=== PATIENT | male | born 1940 | race Caucasian/White ===

== ENCOUNTER 2018-03-23 19:58 | Inpatient (IN) | payer MEDICARE ==
[~2018-03-23] VITALS: Ht 175.3 cm; Wt 71.8 kg
[2018-03-23 19:30] VITALS: BP 158/77
--- NOTE | 2018-03-23 19:30 | NUR ---
TELE AUTOMOBILE OR TRUCK RENTAL DISPATCHER INITAIL NOTES DIRECT ADMIT FROM [facility]. DX OF OPIATES OVERDOSE. PT IS AWAKE AND ALERT X3 , ABLE TO GIVE INFORMATION. STILL VERBALIZING HE WANTS TO KILL HIMSELF THAT'S WHY HE TOOK 10 PERCOCET TABLE AT HOME. HE LIVES BY HIM SELF WITHOUT ANY FAMILY SKIN WARM AND DRY TO TOUCH, NO ACUTE DISTRESS NOTED. AWARE WHERE HE AT . ENCOURAGE HIM TO VERBALIZE HIS FEELINGS AND USED THE CALL LIGHT OR TELL TO THE SITTER BESIDE HIM IF HE NEEDS SOME HELP. TELE SINUS ROSSY 48 PER MONITOR. 3 HEPLOCK PATENT AND INTACT. WILL CONTINUE CLOSELY MONITORING FOR SAFETY.
[2018-03-23] MEDS ORDERED: ENOXAPARIN SODIUM 40 MG/0.4 ML DISP.SYRIN SQ SCH (21:00)
[2018-03-23] MEDS ORDERED: MAG HYDROX/AL HYDROX/SIMETH 30 ML UDC PO PRN (21:00)
[2018-03-23] MEDS ORDERED: NALOXONE HCL 0.4 MG/ML AMPUL IV PRN (21:00)
[2018-03-23] MEDS ORDERED: MAGNESIUM HYDROXIDE 30 ML UDC PO PRN (21:00)
[2018-03-23] MEDS ORDERED: Z GUARD REMEDY 2 OZ OINT TP PRN (21:00)
[2018-03-23] MEDS ORDERED: ONDANSETRON HCL/PF 4 MG/2 ML VIAL IVP PRN (21:00)
[2018-03-23] MEDS: IV NS 0.9% 1,000 ML IV PRN (22:05)
[2018-03-23] MEDS ORDERED: GABA300C PO (23:51)
[2018-03-23] MEDS ORDERED: PANT40TA4 PO (23:51)
[2018-03-23] MEDS ORDERED: ESCI10TA PO (23:51)
[2018-03-23] MEDS ORDERED: TRAZ-182 PO (23:51)
[2018-03-23] MEDS ORDERED: SIMV40TA2 PO (23:51)
[2018-03-24] MEDS: IBUPROFEN 600 MG TABLET PO PRN (00:06)
--- NOTE | 2018-03-24 00:06 | NUR ---
TELE C SOFTWARE ENGINEER NOTES PT STILL AWAKE COMPLAINING OF LOWER LEG PAIN, IBUPROFEN TABLET GIVEN ORDERED. IVF NS AT 100ML/HR STILL INFUSING ON HIS LEFT FOREARM NO REDNESS NOTED. TELE SINUS ROSSY 50 PER MONITOR. SITTER AT THE BEDSIDE FOR SAFETY.
[2018-03-24 05:00] VITALS: BP 145/61
--- NOTE | 2018-03-24 05:10 | NUR ---
TELE HEAD CHEF NOTES EKG RESULT CAME OUT "MARKED SINUS BRADYCARDIA WITH MARKED SINUS ARRHYTHMIA WITH 1ST DEGREE AV BLOCK ,INCOMPLETE LEFT BUNDLE BRANCH BLOCK. VITAL SIGNS FF. BP 145/61, PULSE 48,RESP 19 , TEMP 97.8 AND O2 SAT 98%. MD AWARE NO ORDERS AT THIS TIME. FOR CARDIOLOGY CONSULT TODAY. PT IS AWAKE AND ALERT ,DENIES ANY PAIN OR ANY DISCOMFORT. IVF STILL INFUSING. . SITTER AT THE BEDSIDE FOR SAFETY. WILL CONTINUE MONITORING.
[2018-03-24 06:31] LABS: BASOPHILS % (AUTO) 0.5 % (0.0-2.0); EOSINOPHILS % (AUTO) 3.3 % (0.0-6.0); HEMATOCRIT 25 % (39-51); HEMOGLOBIN 7.8 g/dL (13.5-17.5); LYMPHOCYTES # (AUTO) 1.1 /CMM (0.8-4.8); LYMPHOCYTES % (AUTO) 17.7 % (20.0-44.0); MEAN CORPUSCULAR HGB CONC 31 g/dl (31.0-36.0); MEAN CORPUSCULAR VOLUME 82 fL (80-96); MONOCYTES # (AUTO) 0.9 /CMM (0.1-1.30); MONOCYTES % (AUTO) 13.2 % (2.0-12.0); NEUTROPHILS # (AUTO) 4.2 /CMM (1.8-8.9); NEUTROPHILS % (AUTO) 65.3 % (43.0-81.0); PLATELET COUNT (AUTO) 149 /CMM (150-450); RED BLOOD CELL COUNT(AUTO) 3.08 MIL/uL (4.5-6.0); WHITE BLOOD COUNT (AUTO) 6.5 K/uL (4.3-11.0)
[2018-03-24 06:50] LABS: ALANINE AMINOTRANSFERASE 12 U/L (12-78); ALBUMIN 2.6 g/dL (3.4-5.0); ALKALINE PHOSPHATASE 77 U/L (46-116); ASPARTATE AMINOTRANSFERASE 22 U/L (15-37); BILIRUBIN,DIRECT 0.1 mg/dL (0.0-0.2); BILIRUBIN,TOTAL 0.3 mg/dL (0.2-1.0); CALCIUM, SERUM 7.9 mg/dL (8.5-10.1); CARBON DIOXIDE 23 mmol/L (21-32); CHLORIDE 110 mmol/L (98-107); CREATININE 0.9 mg/dL (0.6-1.3); GLUCOSE 86 mg/dL (74-106); MAGNESIUM 1.7 mg/dL (1.8-2.4); PHOSPHORUS 2.7 mg/dL (2.5-4.9); POTASSIUM 3.4 mmol/L (3.5-5.1); SODIUM SERUM 144 mmol/L (136-145); TOTAL PROTEIN, SERUM 5.8 g/dL (6.4-8.2); UREA NITROGEN, BLOOD 10 mg/dL (7-18)
[2018-03-24 06:51] LABS: CHOLESTEROL 88 mg/dL (<200); HDL CHOLESTEROL 36 mg/dL (40-60); LDL 37 mg/dL (0-99); THYROID STIMULATING HORMONE 5.621 uIU/mL (0.358-3.74); TRIGLYCERIDES 106 mg/dL (30-150)
--- NOTE | 2018-03-24 06:57 | NUR ---
TELE GALLERY OR MUSEUM GUIDE CLOSING NOTES PT BACK TO SLEEP, RESPIRATION EVEN AND UNLABORED, NOT IN ANY ACUTE DISTRESS NOTED. IVF NS AT 100 ML/HR STILL INFUSING ON HIS LEFT FOREARM. NO REDNESS NOTED. TELE SINUS ROSSY HEART RATE 48 . KEPT HIM WARM AND COMFORTABLE AT ALL TIMES. SITTER AT THE BEDSIDE FOR SAFETY. ON SEMI FOWLERS POSITION WITH SIDE RAILS X2 UP. WILL ENDORSE TO AM NURSE FOR CONTINUITY OF CARE.
[2018-03-24 06:58] LABS: ACETAMINOPHEN 0 ug/ml (10-30)
[2018-03-24 08:00] VITALS: BP 129/66
[2018-03-24] MEDS: PANTOPRAZOLE 40 MG VIAL IV SCH (08:55)
[2018-03-24] MEDS ORDERED: POTASSIUM CHLORIDE 20 MEQ TAB.PRT.SR PO SCH (11:30)
[2018-03-24] MEDS: Magnesium 1GM/D5W 100ML PREMIX 100 ML IV SCH ×2 (11:50→14:17)
[2018-03-24] MEDS: IV NS 0.9% 1,000 ML IV PRN (11:53)
[2018-03-24 12:00] VITALS: BP 140/58
--- NOTE | 2018-03-24 12:44 | NUR ---
RN NOTES PT.'S HR DECREASED TO 35 BPM WHILE SLEEPING ON TELE MONITOR AND INCREASED TO [address] STERLING WAS INFORMED ABOUT PT.'S HEART RATE. PER DR. STERLING OKAY TO CONTINUE PT. ON TELE MONITOR.
[2018-03-24 16:00] VITALS: BP 138/68
--- NOTE | 2018-03-24 18:10 | NUR ---
Met with patient at bedside. He is alert and pleasant.States his overdose was intentional due to his depression. Has not seen his psychiatrist for a long time now. Patient denies being suicidal and homicidal at this time. He was advised to follow with his pcp Dr. Ramires and his psychiatrist after discharge. Patient lives alone in a single level dwelling. He ambulates with a walker and semi-independent with adl's. He owns a walker, shower chair and grab bars, no homehealth reported. States his primary source of support is his friend Aldo and his next door neighbor. Aldo takes him to groceries, appointments and errands, Aldo can provide ride when discharge. Will refer patient to bilingual social worker for meals on wheels application , [facility] info provided to patient to explore. Awaiting for psyche eval and clearance for possible discharge home in am. Addendum: 03/24/18 at 1811 by SEBASTIAN LEO RN Amended: Links added.
--- NOTE | 2018-03-24 18:11 | NUR ---
Met with patient at bedside. He is alert and pleasant.States his overdose was intentional due to his depression. Has not seen his psychiatrist for a long time now. Patient denies being suicidal and homicidal at this time. He was adived to follow with his pcp Dr. Ramires and his psychiatrist after discharge. Patient lives alone in a single level dwelling. He ambulates with a walker and semi-independent with adl's. He owns a walker, shower chair and grab bars, no homehealth reported. States his primary source of support is his friend Aldo and his next door neighbor. Aldo takes him to groceries, appointments and errands, Aldo can provide ride when discharge. Will refer patient to clinical social worker for meals on wheels application , [facility] info provided to patient to explore. Awaiting for psyche eval and clearance for possible discharge home in am. Addendum: 03/24/18 at 1811 by SEBASTIAN LEO RN Amended: Links added.
--- NOTE | 2018-03-24 19:20 | NUR ---
TELE/RN OPENING NOTES PT RECEIVED AWAKE, RESTING COMFORTABLY IN BED. A/OX3. SITTER AT BEDSIDE. ON ROOM AIR, BREATHING EVEN AND UNLABORED. ON TELE MONITOR SHOWING SINUS BRADYCARDIA WITH 1ST DEGREE AV BLOCK. HR 54. DENIES SOB AND PAIN AT THIS TIME. IV TO LFA AND RAC PATENT AND INTACT RUNNING IVF ORDERED. BED IN LOW/LOCKED POSITION WITH CALL LIGHT IN REACH. BILATERAL UPPER SIDE RAILS IN PLACE. HOB ELEVATED. WILL CONTINUE TO MONITOR
[2018-03-24 20:00] VITALS: BP 128/85
--- NOTE | 2018-03-24 20:10 | NUR ---
ROLL FILLER/ CLOSING NOTES PT. IS IN BED A&OX3. BREATHING UNLABORED ON ROOM AIR. NO S/S OF ACUTE DISTRESS. PT. STATED HE IS FEELING GOOD. IV FLUIDS RUNNING AT 100 ML/HR. 1:1 SITTER IS AT BEDSIDE. EXPLAINED TO PT. WHEN HE IS HAVING ANY SYMPTOMS OF DIARRHEA TO USE THE HAT PLACED IN THE TOILET TO HAVE STOOL COLLECTED, AND ENDORSED TO SITTER. BED IS IN LOWEST, AND LOCKED POSITION. 2 SIDE RAILS UP, AND INSTRUCTED PT. TO USE CALL LIGHT FOR ASSISTANCE. ALL NEEDS MET. WILL ENDORSE REPORT TO NURSE.
[2018-03-25] MEDS: IV NS 0.9% 1,000 ML IV PRN ×2 (00:16→11:23)
[2018-03-25 04:00] VITALS: BP 143/69
[2018-03-25 06:49] LABS: CALCIUM, SERUM 7.6 mg/dL (8.5-10.1); CARBON DIOXIDE 24 mmol/L (21-32); CHLORIDE 110 mmol/L (98-107); GLUCOSE 85 mg/dL (74-106); MAGNESIUM 1.9 mg/dL (1.8-2.4); POTASSIUM 3.3 mmol/L (3.5-5.1); SODIUM SERUM 144 mmol/L (136-145); UREA NITROGEN, BLOOD 9 mg/dL (7-18)
--- NOTE | 2018-03-25 07:20 | NUR ---
METAL RIVETER OPENING NOTE RECEIVED PT IN BED, ALERT AND ORIENTED X4. DENIES N/V, CHEST PAIN, SOB. DENIES CURRENT SI AND AUDITORY/VISUAL HALLUCINATIONS. L FA #18G, R AC #18G, AND L AC #18 G IVS ARE SALINE LOCKED WITHOUT REDNESS OR SWELLING. PT DUE TO PSYCH CONSULT TODAY. SITTER NOTED AT THE BEDSIDE. BED IS LOCKED AND IN LOWEST POSITION, SIDE RAILS UP X2, CALL LIGHT WITHIN REACH.
--- NOTE | 2018-03-25 07:45 | NUR ---
TELE/RN CLOSING NOTES PT AWAKE, A/OX3. HOB ELEVATED. ON ROOM AIR, BREATHING EVEN AND UNLABORED. DENIES SOB AND PAIN AT THIS TIME. DENIES SI/HI/HALLUCINATIONS. PLEASANT AND COMPLIANT. EMOTIONAL WHEN TALKING ABOUT HIS DOG. SUPPORT PROVIDED. IV TO LFA AND LAC PATENT AND INTACT. IV TO LAC RUNNING IVF ORDERED. NO DIARRHEA DURING SHIFT. REMAINS ON TELE MONITOR SHOWING SB WITH PAC AND 1ST DEGREE AV BLOCK, HR 55. KEPT PT COMFORTABLE DURING SHIFT. ALL NEEDS MET. BED REMAINS IN LOW/LOCKED POSITION WITH CALL LIGHT IN REACH. BILATERAL UPPER SIDE RAILS IN PLACE AND BED ALARM ON FOR SAFETY. SITTER AT BEDSIDE. ENDORSED TO DAY SHIFT RN CHRISTEL.
[2018-03-25 08:00] VITALS: BP 129/65
[2018-03-25] MEDS: PANTOPRAZOLE 40 MG VIAL IV SCH (09:03)
[2018-03-25] MEDS: IBUPROFEN 600 MG TABLET PO PRN (09:06)
[2018-03-25] MEDS ORDERED: POTASSIUM CHLORIDE 20 MEQ TAB.PRT.SR PO ONE (13:30)
--- NOTE | 2018-03-25 16:15 | NUR ---
MS RN PT TRANSFERRED/DISCHARGED TO GPS PT TRANSFERRED/DISCHARGED TO [facility] ROOM 213-1 IN MEDICALLY STABLE CONDITION. PT IS ALERT AND ORIENTED X4, DENIES N/V, CHEST PAIN, SOB. BREATHING IS EVEN AND UNLABORED ON RA. L FA #18G, R AC #18G, AND L AC #18G IV ALL REMOVED WITH CATHETER TIPS INTACT. PAPERWORK INCLUDING ADVANCED DIRECTIVE, 5150 HOLD, PHYSICIAN ORDERS, TRANSFER SUMMARIES FROM [facility] AND [facility], AND CURRENT MEDICATIONS PROVIDED TO RICHIE SMILEY. AND TIME FOR TOILETING PROVIDED PRIOR TO TRANSFER. ALL BELONGINGS ACCOUNTED FOR AND BELONGINGS LIST SIGNED AND PLACED IN CHART. VICENTA RAMIREZ INFORMED OF TRANSFER. REPORT GIVEN TO RICHIE SMILEY FOR CONTINUITY OF CARE. THE NURSE ACCOMPANIED THE PT TO ROOM 213-1 VIA WHEELCHAIR AND ENDORSED PT TO BALJIT QUIROZ AND HARDIK ERAZO.
[2018-03-25] MEDS ORDERED: OXYC-454 PO (16:50)
[2018-03-25] MEDS ORDERED: ESCITALOPRAM OXALATE (10 MG) 10 MG TABLET PO SCH (22:00)
== END 2018-03-25 16:25 | DRG 918 ==
LOC: TELE 19:58 → MED 03-24 09:09 → TELE 03-24 21:47 → MED 03-25 09:58
PROVIDERS: ADMIT Psychiatry & Neurology Psychiatry; ATTEND Nurse Practitioner Acute Care
DX: T40.2X1A Poisoning by other opioids, accidental (unintentional), initial encounter (principal); E44.0 Moderate protein-calorie malnutrition; Y92.9 Unspecified place or not applicable; D63.8 Anemia in other chronic diseases classified elsewhere; G89.4 Chronic pain syndrome; K21.9 Gastro-esophageal reflux disease without esophagitis; Z91.5 Personal history of self-harm; Z86.59 Personal history of other mental and behavioral disorders; E87.6 Hypokalemia; E83.42 Hypomagnesemia; R00.1 Bradycardia, unspecified; E03.9 Hypothyroidism, unspecified; M25.551 Pain in right hip
CPT/HCPCS: 36415; 71045-TC; 80048-TC; 80053-TC; 80061-TC; 80076-TC; 83735-TC; 84100-TC; 84436-TC; 84443-TC; 85025-TC; 87081-TC; C9113; G0378; G0480; J1650; J3475; J7030; Z7610

== ENCOUNTER 2021-02-27 19:20 | Inpatient (IN) | payer MEDICARE ==
[~2021-02-27] VITALS: Ht 175.3 cm; Wt 93.0 kg
[~2021-02-27 19:20] MED LIST: GABA300C PO; OXYC1TAB12 PO; PANT40TA49 PO; SIMV40TA2 PO
--- NOTE | 2021-02-27 19:40 | NUR ---
BLOOD OBTAINED AND SENT TO LAB
[2021-02-27] MEDS ORDERED: LIDOCAINE 2% JEL UROJET 10 ML MM ONE ×2 (19:45→23:30)
--- NOTE | 2021-02-27 19:45 | NUR ---
VERBAL ORDER FOR UROJET
[2021-02-27 19:52] LABS: BASOPHILS # (AUTO) 0.1 K/uL (0.0-0.2); BASOPHILS % (AUTO) 0.8 % (0.0-2.0); EOSINOPHILS % (AUTO) 2.1 % (0.0-6.0); HEMATOCRIT 37 % (39-51); HEMOGLOBIN 11.7 g/dL (13.5-17.5); LYMPHOCYTES # (AUTO) 1.6 K/uL (0.8-4.8); LYMPHOCYTES % (AUTO) 15.5 % (20.0-44.0); MEAN CORPUSCULAR HGB CONC 31 g/dl (31.0-36.0); MEAN CORPUSCULAR VOLUME 85 fL (80-96); MONOCYTES # (AUTO) 1.3 K/uL (0.1-1.30); MONOCYTES % (AUTO) 12.3 % (2.0-12.0); NEUTROPHILS # (AUTO) 7.1 K/uL (1.8-8.9); NEUTROPHILS % (AUTO) 69.3 % (43.0-81.0); PLATELET COUNT (AUTO) 208 K/uL (150-450); RED BLOOD CELL COUNT(AUTO) 4.41 MIL/uL (4.5-6.0); WHITE BLOOD COUNT (AUTO) 10.2 K/uL (4.3-11.0)
--- NOTE | 2021-02-27 19:59 | NUR ---
PT TAKEN TO CT
--- NOTE | 2021-02-27 19:59 | NUR ---
URINE COLLECTED SENT TO LAB
--- NOTE | 2021-02-27 20:00 | NUR ---
PATIENT [id number] C/O ABDOMINAL PAIN X1 HOUR. -N/V/D. PATIENT A/O X 4, NO SOB NOTED, RR EVEN AND UNLABORED. PATIENT CONNECTED TO CARDIAC AND POX MONITOR.
[2021-02-27 20:04] LABS: CALCIUM, SERUM 8.8 mg/dL (8.5-10.1); CARBON DIOXIDE 32 mmol/L (21-32); CHLORIDE 104 mmol/L (98-107); CREATININE 1.4 mg/dL (0.6-1.3); GLUCOSE 125 mg/dL (74-106); POTASSIUM 3.7 mmol/L (3.5-5.1); SODIUM SERUM 143 mmol/L (136-145); UREA NITROGEN, BLOOD 19 mg/dL (7-18)
[2021-02-27 20:09] LABS: ALANINE AMINOTRANSFERASE 27 U/L (12-78); ALBUMIN 3.2 g/dL (3.4-5.0); ALKALINE PHOSPHATASE 134 U/L (46-116); ASPARTATE AMINOTRANSFERASE 21 U/L (15-37); BILIRUBIN,DIRECT 0.1 mg/dL (0.0-0.2); BILIRUBIN,TOTAL 0.2 mg/dL (0.2-1.0); LIPASE 87 U/L (73-393); TOTAL PROTEIN, SERUM 7.7 g/dL (6.4-8.2)
[2021-02-27 21:03] LABS: BILIRUBIN,URINE Negative (NEGATIVE); COLOR,URINE YELLOW (YELLOW); LEUKOCYTE ESTERASE ,URINE Negative (NEGATIVE); NITRITE, URINE Negative (NEGATIVE); PROTEIN,URINE Negative (NEGATIVE); UGLUCOSE Negative (NEGATIVE); UROBILINOGEN,URINE 0.2 EU/dL (0.2)
--- NOTE | 2021-02-27 21:24 | NUR ---
MOVESHEET SUBMITTED AND NURSING SUP ASKED FOR BED
--- NOTE | 2021-02-27 21:42 | NUR ---
PAGED DR ADEN
[2021-02-27] MEDS ORDERED: MAG HYDROX/AL HYDROX/SIMETH 30 ML UDC PO PRN (23:30)
[2021-02-27] MEDS ORDERED: Z GUARD REMEDY 2 OZ OINT TP PRN (23:30)
[2021-02-27] MEDS ORDERED: MAGNESIUM HYDROXIDE 30 ML UDC PO PRN (23:30)
[2021-02-27] MEDS ORDERED: ACETAMINOPHEN 325 MG TABLET PO PRN (23:30)
[2021-02-27] MEDS ORDERED: ZOLPIDEM TARTRATE 5 MG TABLET PO PRN (23:30)
[2021-02-27] MEDS ORDERED: ONDANSETRON HCL/PF 4 MG/2 ML VIAL IVP PRN (23:30)
--- NOTE | 2021-02-27 23:31 | NUR ---
PT N/V X 2, ORDER PER ER MD LAW ZOFRAN 4 MG IVP
[2021-02-28] MEDS ORDERED: MORPHINE SULFATE INJ 2 MG/ML DISP.SYRIN IV PRN
--- NOTE | 2021-02-28 00:29 | NUR ---
REPORT GIVEN TO BRI QUIROZ
--- NOTE | 2021-02-28 00:38 | NUR ---
ROOM ASSIGNMENT: 110 MS
--- NOTE | 2021-02-28 00:57 | NUR ---
PATIENT TRANSFERRED UNDER ACLS
[2021-02-28] MEDS: IV NS 0.9% 1,000 ML IV SCH ×3 (01:19→19:30)
[2021-02-28 02:54] VITALS: BP 128/81
[2021-02-28] MEDS ORDERED: METRONIDAZOLE 500MG/ NS 100ML 100 ML IV ONE (03:51)
[2021-02-28] MEDS ORDERED: LEVOFLOXACIN 500 MG /D5W 100ML 100 ML IV ONE (03:51)
[2021-02-28 04:00] VITALS: BP 118/64
[2021-02-28] MEDS: LEVOFLOXACIN 500 MG /D5W 100ML 500 MG in PREMIX 1 EA IV SCH ×2 (04:08→23:38)
[2021-02-28] MEDS: METRONIDAZOLE 500MG/ NS 100ML 500 MG in PREMIX 1 EA IV SCH ×4 (04:12→23:37)
--- NOTE | 2021-02-28 04:54 | NUR ---
RN notes Admitted a 80 year old male from ER via stretcher with complaints of severe abdominal pain, more severe in last 1 hour. Noted with 2x vomiting in ER, patient vomited at his room large amount of emesis. Patient was admitted for ileus. Still complaining of abdominal pain 4/10 while guarding stomach with hands. Alert and oriented. Able to verbally communicate need. Skin assessment done, skin intact. Kept clean and dry.
[2021-02-28 07:08] LABS: BASOPHILS % (AUTO) 0.3 % (0.0-2.0); EOSINOPHILS % (AUTO) 0.2 % (0.0-6.0); HEMATOCRIT 35 % (39-51); LYMPHOCYTES # (AUTO) 0.8 K/uL (0.8-4.8); LYMPHOCYTES % (AUTO) 5.7 % (20.0-44.0); MEAN CORPUSCULAR HGB CONC 31 g/dl (31.0-36.0); MEAN CORPUSCULAR VOLUME 84 fL (80-96); MONOCYTES # (AUTO) 1.3 K/uL (0.1-1.30); MONOCYTES % (AUTO) 9.5 % (2.0-12.0); NEUTROPHILS # (AUTO) 11.3 K/uL (1.8-8.9); NEUTROPHILS % (AUTO) 84.3 % (43.0-81.0); PLATELET COUNT (AUTO) 191 K/uL (150-450); RED BLOOD CELL COUNT(AUTO) 4.18 MIL/uL (4.5-6.0); WHITE BLOOD COUNT (AUTO) 13.3 K/uL (4.3-11.0)
--- NOTE | 2021-02-28 07:20 | NUR ---
MS RN OPENING NOTES RECEIVED PATIENT RESTING IN BED. A/OX4, RESPIRATIONS ARE EVEN AND UNLABORED WITH NO SIGNS AND SYMPTOMS OF DISTRESS AT THIS TIME, NO SOB.IV ACCESS ON RFA#20 ON NS @ 100ML/HR IV INTACT AND PATENT SAFETY MEASURES IN PLACE, BED ON LOW AND LOCKED, HOB ELEVATED IN SEMI FOWLERS, CALL LIGHT WITHIN REACH., SIDE RAILS UP X 2. WILL CONTINUE TO MONITOR ACCORDINGLY
[2021-02-28 07:32] LABS: CARBON DIOXIDE 29 mmol/L (21-32); CHLORIDE 106 mmol/L (98-107); CREATININE 1.5 mg/dL (0.6-1.3); GLUCOSE 134 mg/dL (74-106); MAGNESIUM 1.9 mg/dL (1.8-2.4); PHOSPHORUS 3.9 mg/dL (2.5-4.9); SODIUM SERUM 142 mmol/L (136-145); UREA NITROGEN, BLOOD 25 mg/dL (7-18)
[2021-02-28 10:53] LABS: CHOLESTEROL 92 mg/dL (<200); HDL CHOLESTEROL 34 mg/dL (40-60); LDL 39 mg/dL (0-99); TRIGLYCERIDES 115 mg/dL (30-150)
[2021-02-28 12:00] VITALS: BP 118/64
[2021-02-28] MEDS ORDERED: DIATR MEGLU/DIATRIZOATE SODIUM 120 ML BOTTLE (GASTROGRAPHIN) ONE (12:12)
--- NOTE | 2021-02-28 15:04 | NUR ---
[facility]ICENTA [facility] DOCUMENTS ATTACHED TO CHART Addendum: 02/28/21 at 1839 by ANGELA MARTIN RN ADVANCED DIRECTIVE BROUGHT BY VICENTA ATTACHED TO CHART AND DR. LYNDON CISNEROSIED.
--- NOTE | 2021-02-28 15:05 | NUR ---
[facility] LITIGATION COORDINATOR WILL ARELLANO PHONE NO. CELL NO.
--- NOTE | 2021-02-28 15:10 | NUR ---
WITH PACEMAKER, LAST CHECKED 2 WEEKS AGO. ANALYST GEOCHEMICAL PROSPECTING IS DR. RAMONA VAZQUEZ PMD IS DR. SUN
--- NOTE | 2021-02-28 15:21 | NUR ---
RN NOTE PATIENT REFUSED CATHETETIZATION FOR URNE COLLECTION ORDERED BY JAIRO GONZALEZ
--- NOTE | 2021-02-28 18:33 | NUR ---
MS RN CLOSING NOTES PATIENT RESTING IN BED. A/OX4, RESPIRATIONS ARE EVEN AND UNLABORED WITH NO SIGNS AND SYMPTOMS OF DISTRESS AT THIS TIME, NO SOB.IV ACCESS ON RFA#20 ON NS @ 100ML/HR IV INTACT AND PATENT SAFETY MEASURES IN PLACE, BED ON LOW AND LOCKED, HOB ELEVATED IN SEMI FOWLERS, CALL LIGHT WITHIN REACH., SIDE RAILS UP X 2. WILL CONTINUE TO MONITOR ACCORDINGLY
--- NOTE | 2021-02-28 19:30 | NUR ---
RN OPENING NOTES: RECEIVED PT A/OX IN BED RESTING/SLEEPING COMFORTABLY. PATIENT IN NO S/SX OF ACUTE DISTRESS AT THIS TIME. NO SOB NOTED. PATIENT'S BREATHING IS EVEN AND UNLABORED. PATIENT IS ON 2L OF OXYGEN VIA NC; TOLERATING WELL. PATIENT ON NPO DIET NOTED IV SITE ON R FA#20 ; PATENT, INTACT AND FLUSHING WELL; NO S/S OF INFECTION OR INFILTRATION. WITH IV FLUID RUNNING ORDERED. SAFETY MEASURES HAVE BEEN PROVIDED AND IMPLEMENTED. PATIENT BED ALARM IS ON. HEAD OF BED ELEVATED. BED IS LOCKED, IN LOWEST POSITION AND SIDE RAILS UP. CALL LIGHT WITHIN REACH OF THE PATIENT. APPLICABLE ISOLATION PRECAUTIONS IN PLACE. WILL CONTINUE TO MONITOR AND REASSESS FOR ANY CHANGES AND WILL CARRY OUT ANY ONGOING AND ACTIVE MD ORDER.
[2021-02-28 20:00] VITALS: BP 135/67
--- NOTE | 2021-03-01 | NUR ---
RN NOTES PATIENT REMAINED TO BE IN NO SIGNS OF ACUTE RESPIRATORY DISTRESS , VITAL SIGNS WNL AT THIS TIME. WILL CONTINUE TO MONITOR AND REASSESS FOR ANY CHANGES THROUGHOUT THE SHIFT.
[2021-03-01 04:00] VITALS: BP 139/71
--- NOTE | 2021-03-01 04:00 | NUR ---
RN NOTES PATIENT REMAINED TO BE IN NO SIGNS OF ACUTE RESPIRATORY DISTRESS , VITAL SIGNS STABLE AT THIS TIME. WILL CONTINUE TO MONITOR AND REASSESS FOR ANY CHANGES THROUGHOUT THE SHIFT.
[2021-03-01 04:03] LABS: BILIRUBIN,URINE NEGATIVE (NEGATIVE); COLOR,URINE YELLOW (YELLOW); LEUKOCYTE ESTERASE ,URINE NEGATIVE (NEGATIVE); NITRITE, URINE NEGATIVE (NEGATIVE); PH,URINE 5.5 (5.0-8.0); PROTEIN,URINE TRACE mg/dl (NEGATIVE); UGLUCOSE NEGATIVE (NEGATIVE); UROBILINOGEN,URINE 0.2 EU/dL (0.2)
[2021-03-01] MEDS: IV NS 0.9% 1,000 ML IV SCH (05:31)
--- NOTE | 2021-03-01 06:51 | NUR ---
RN CLOSING NOTE: PATIENT REMAINS IN ROOM IN NO SIGNS OF RESPIRATORY DISTRESS, PATIENT STILL ON 2L OF 02 VIA NC;TOLERATING WELL SATURATING @ >95% SP02. SAFETY MEASURES IMPLEMENTED, BED IN LOWEST POSITION, LOCKED, SIDE RAILS UP, CALL LIGHT WITHIN REACH. ALL NEEDS AND ORDERS ADDRESSED DURING THE SHIFT. IV ACCESS MAINTAINED INTACT, SECURED AND FLUSHING WELL. ALL DUE MEDS GIVEN ORDERED & SCHEDULED ; PATIENT TOLERATED WELL. PATIENT KEPT CLEAN AND COMFORTABLE WITHIN THE SHIFT. PATIENT ENDORSED TO INCOMING SHIFT RN WITH STABLE VITAL SIGN AND FOR CONTINUITY OF CARE.
[2021-03-01 06:53] LABS: BACTERIA,URINE Few /HPF (None Seen)
[2021-03-01 06:54] LABS: SQUAMOUS EPITHELIAL CELL,UR Rare /HPF (None Seen)
[2021-03-01 06:57] LABS: EOSINOPHIL,URINE None Seen
--- NOTE | 2021-03-01 07:22 | NUR ---
RN NOTE PATIENT IS IN BED WITH HOB AT SEMI FOWLERS POSITION. PATIENT IS ON 2L NC WITH NO SIGNS OF LABORED BREATHING. PATIENT IS AOX4. RFA 20 IS PATENT AND INTACT. BED IS LOCKED IN THE LOWEST POSITION, 3 GUARD RAILS RAISED, CALL HAILE WITHIN REACH, AND ALL HOSPITAL SAFETY PRECAUTIONS ARE BEING FOLLOWED. WILL CONTINUE TO MONITOR THROUGHOUT SHIFT.
[2021-03-01] MEDS: METRONIDAZOLE 500MG/ NS 100ML 500 MG in PREMIX 1 EA IV SCH (07:37)
[2021-03-01 08:02] LABS: ALANINE AMINOTRANSFERASE 18 U/L (12-78); ALBUMIN 2.6 g/dL (3.4-5.0); ALKALINE PHOSPHATASE 100 U/L (46-116); ASPARTATE AMINOTRANSFERASE 19 U/L (15-37); BILIRUBIN,TOTAL 0.3 mg/dL (0.2-1.0); CALCIUM, SERUM 7.5 mg/dL (8.5-10.1); CARBON DIOXIDE 26 mmol/L (21-32); CHLORIDE 111 mmol/L (98-107); CREATININE 1.2 mg/dL (0.6-1.3); GLUCOSE 104 mg/dL (74-106); MAGNESIUM 2.1 mg/dL (1.8-2.4); PHOSPHORUS 2.1 mg/dL (2.5-4.9); POTASSIUM 3.5 mmol/L (3.5-5.1); SODIUM SERUM 145 mmol/L (136-145); TOTAL PROTEIN, SERUM 6.4 g/dL (6.4-8.2); UREA NITROGEN, BLOOD 23 mg/dL (7-18)
--- NOTE | 2021-03-01 10:00 | NUR ---
RN NOTE PATIENT REMOVED LWRIST IV ACCESS AND IS REFUSING INSERTION OF NEW IV.
[2021-03-01] MEDS ORDERED: K PHOS NEUTRAL 250 MG TABLET PO ONE (10:30)
--- NOTE | 2021-03-01 18:50 | NUR ---
RN NOTE PATIENT IS IN BED WITH HOB AT SEMI FOWLERS POSITION. PATIENT IS ON 2L NC WITH NO SIGNS OF LABORED BREATHING. PATIENT IS AOX4. RFA 20 IS PATENT AND INTACT. BED IS LOCKED IN THE LOWEST POSITION, 3 GUARD RAILS RAISED, CALL HAILE WITHIN REACH, AND ALL HOSPITAL SAFETY PRECAUTIONS ARE BEING FOLLOWED. ALL DUE MEDICATIONS GIVEN AND PATIENT REMAINED STABLE THROUGHOUT SHIFT. WILL ENDORSE TO PLANT MAINTENANCE MECHANIC RN. Addendum: 03/01/21 at 1852 by GUNNAR CANDELARIO RN YFN FRIAS
--- NOTE | 2021-03-01 20:00 | NUR ---
RECEIVED PATIENT IN BED, ALERT/ORIENTED X2-3, FORGETFUL, 2LPM VIA NC, NO RESPIRATORY DISTRESS, NO ABDOMINAL PAIN, DIET UPGRADED TO SOFT DIET. KEPT SAFE, WILL CONTINUE TO MONITOR.
[2021-03-01 20:36] VITALS: BP 139/74
[2021-03-01 20:42] VITALS: BP 139/74
[2021-03-02 00:26] VITALS: BP 128/78
[2021-03-02 04:00] VITALS: BP 150/68
--- NOTE | 2021-03-02 06:44 | NUR ---
ALERT/ORIENTED X2, FORGETFUL, ATTENTION SEEKER, STABLE ON 2LPM VIA NC, NO COMPLAIN OF PAIN, SOFT DIET, KRANTHI MIDLINE PATENT, DISCHARGE PLANNING IF PATIENT TOLERATING SOFT DIET.
--- NOTE | 2021-03-02 07:30 | NUR ---
RN NOTE PATIENT IS IN BED WITH AWAKE ALERT AND ORIENTED X3, HEAD OF BED ELEVATED. PATIENT IS ON O2 VIA 2L NC BREATHING EVEN AND UNLABORED.RFA 20 IS PATENT AND INTACT. BED IS LOCKED IN THE LOWEST POSITION, CALL LIGHT WITHIN REACH, AND SAFETY PRECAUTIONS ARE BEING FOLLOWED. WILL CONTINUE TO MONITOR THROUGHOUT SHIFT.
[2021-03-02 07:47] LABS: BASOPHILS % (AUTO) 0.2 % (0.0-2.0); EOSINOPHILS % (AUTO) 1.9 % (0.0-6.0); HEMATOCRIT 31 % (39-51); LYMPHOCYTES # (AUTO) 1.1 K/uL (0.8-4.8); LYMPHOCYTES % (AUTO) 12.4 % (20.0-44.0); MEAN CORPUSCULAR HGB CONC 32 g/dl (31.0-36.0); MEAN CORPUSCULAR VOLUME 85 fL (80-96); MONOCYTES % (AUTO) 11.6 % (2.0-12.0); NEUTROPHILS # (AUTO) 6.4 K/uL (1.8-8.9); NEUTROPHILS % (AUTO) 73.9 % (43.0-81.0); PLATELET COUNT (AUTO) 178 K/uL (150-450); RED BLOOD CELL COUNT(AUTO) 3.69 MIL/uL (4.5-6.0); WHITE BLOOD COUNT (AUTO) 8.7 K/uL (4.3-11.0)
[2021-03-02 07:51] LABS: CALCIUM, SERUM 8.2 mg/dL (8.5-10.1); MAGNESIUM 1.9 mg/dL (1.8-2.4); PHOSPHORUS 2.2 mg/dL (2.5-4.9); POTASSIUM 3.1 mmol/L (3.5-5.1)
[2021-03-02 08:00] VITALS: BP 126/79
[2021-03-02] MEDS ORDERED: POTASSIUM CHLORIDE 20 MEQ POWDER PACKET PO SCH (10:00)
[2021-03-02] MEDS ORDERED: NEUTRA PHOS 1 POWD.PACKET PO ONE (10:30)
--- NOTE | 2021-03-02 14:00 | NUR ---
RN NOTE PATIENT DISCHARGE TO HOME, EXIT CARE PROVIDED, IV SITE DC ORDERED, VTS WNL. PICKED UP BY POWER OF TRIMMER MEAT WITH PRIVATE VEHICLE.
== END 2021-03-02 14:14 | DRG 388 ==
LOC: ER 19:25 → MEDSG1 02-28 00:29
PROVIDERS: ADMIT Family Medicine
PROC: 05HB33Z Insertion of Infusion Device into Right Basilic Vein, Percutaneous Approach (ICD-10-PCS; principal; 2021-03-01)
DX: K56.600 Partial intestinal obstruction, unspecified as to cause (principal); N17.0 Acute kidney failure with tubular necrosis; E44.1 Mild protein-calorie malnutrition; A04.9 Bacterial intestinal infection, unspecified; K56.7 Ileus, unspecified; N18.9 Chronic kidney disease, unspecified; E78.5 Hyperlipidemia, unspecified; K21.9 Gastro-esophageal reflux disease without esophagitis; I72.3 Aneurysm of iliac artery; I71.4 Abdominal aortic aneurysm, without rupture; E66.9 Obesity, unspecified; Z20.822 Contact with and (suspected) exposure to COVID-19; Z96.649 Presence of unspecified artificial hip joint; Z85.048 Personal history of other malignant neoplasm of rectum, rectosigmoid junction, and anus; Z79.899 Other long term (current) drug therapy; K57.30 Diverticulosis of large intestine without perforation or abscess without bleeding; D64.9 Anemia, unspecified; R73.9 Hyperglycemia, unspecified; R74.8 Abnormal levels of other serum enzymes; N32.0 Bladder-neck obstruction; N30.90 Cystitis, unspecified without hematuria; N43.3 Hydrocele, unspecified; J43.9 Emphysema, unspecified; Z68.30 Body mass index [BMI] 30.0-30.9, adult; E83.39 Other disorders of phosphorus metabolism; E87.6 Hypokalemia
CPT/HCPCS: 36410; 36415; 74250-TC; 76770-TC; 76856-TC; 80048-TC; 80053-TC; 80061-TC; 80076-TC; 81001; 83690-TC; 83735-TC; 84100-TC; 84484-TC; 85025-TC; 85730-TC; 87081-TC; A4216; A4349; G0378; J1956; J2270; J2405; J3490; J7030; J7050; Q9963; U0003

== ENCOUNTER 2023-04-05 08:47 | Inpatient (IN) | payer MEDICARE ==
[~2023-04-05] VITALS: Ht 175.3 cm; Wt 68.5 kg
[2023-04-05] VITALS (15 sets, daily range): BP systolic 86–145; BP diastolic 40–62; TEMP 97.9; O2SAT 97–100
[2023-04-05 09:29] LABS: BASOPHILS % (AUTO) 0.2 % (0.0-2.0); HEMATOCRIT 35 % (39-51); LYMPHOCYTES # (AUTO) 0.9 K/uL (0.8-4.8); LYMPHOCYTES % (AUTO) 4.5 % (20.0-44.0); MEAN CORPUSCULAR HEMOGLOBIN 28 PG (26.0-33.0); MEAN CORPUSCULAR HGB CONC 31 g/dl (31.0-36.0); MEAN CORPUSCULAR VOLUME 89 fL (80-96); MONOCYTES # (AUTO) 0.9 K/uL (0.1-1.30); MONOCYTES % (AUTO) 4.3 % (2.0-12.0); NEUTROPHILS # (AUTO) 18.2 K/uL (1.8-8.9); PLATELET COUNT (AUTO) 171 K/uL (150-450); RED BLOOD CELL COUNT(AUTO) 3.93 MIL/uL (4.5-6.0); RED CELL DISTRIBUTION WIDTH 18.2 % (11.5-15.0)
[2023-04-05] MEDS ORDERED: IV NS 0.9% 1,000 ML BAG IV ONE (09:30)
[2023-04-05] MEDS ORDERED: VANCOMYCIN 1 GM in IV D5W 250 ML IV ONE (09:30)
[2023-04-05] MEDS ORDERED: CEFEPIME 1 GM in IV D5W 50 ML IV ONE (09:30)
[2023-04-05 09:39] LABS: CALCIUM, SERUM 8.4 mg/dL (8.5-10.1); CARBON DIOXIDE 24 mmol/L (21-32); CHLORIDE 102 mmol/L (98-107); CREATININE 1.9 mg/dL (0.6-1.3); GLUCOSE 132 mg/dL (74-106); POTASSIUM 4.1 mmol/L (3.5-5.1); SODIUM SERUM 137 mmol/L (136-145); UREA NITROGEN, BLOOD 29 mg/dL (7-18)
[2023-04-05 09:41] LABS: SERUM AMMONIA 28 umol/L (11-32)
[2023-04-05] MEDS ORDERED: ZINC50TA15 PO (09:49)
[2023-04-05] MEDS ORDERED: CHOL100043 PO (09:49)
[2023-04-05] MEDS ORDERED: ACET-2605 PO (09:49)
[2023-04-05] MEDS ORDERED: LORA-259 PO (09:49)
[2023-04-05] MEDS ORDERED: HYDR-4303 PO (09:49)
[2023-04-05] MEDS ORDERED: TRIA15CR2 TP (09:49)
[2023-04-05] MEDS ORDERED: ASCO-352 PO (09:49)
[2023-04-05] MEDS ORDERED: MIRT-90 PO (09:49)
[2023-04-05] MEDS ORDERED: ATOR10TA PO (09:49)
[2023-04-05] MEDS ORDERED: LEVO50TA8 PO (09:49)
[2023-04-05] MEDS ORDERED: LOPE-195 PO (09:49)
[2023-04-05] MEDS ORDERED: ESCI10TA PO (09:49)
[2023-04-05] MEDS ORDERED: NA P133E RC (09:49)
[2023-04-05] MEDS ORDERED: BISA10SU11 RC (09:49)
[2023-04-05] MEDS ORDERED: AMIN30LI2 PO (09:49)
[2023-04-05 09:52] LABS: THYROID STIMULATING HORMONE 6.622 uIU/mL (0.358-3.74)
[2023-04-05 09:54] LABS: ALANINE AMINOTRANSFERASE 26 U/L (12-78); ALBUMIN 2.6 g/dL (3.4-5.0); ALKALINE PHOSPHATASE 98 U/L (46-116); ASPARTATE AMINOTRANSFERASE 26 U/L (15-37); BILIRUBIN,DIRECT 0.2 mg/dL (0.0-0.2); BILIRUBIN,TOTAL 0.6 mg/dL (0.2-1.0); TOTAL PROTEIN, SERUM 7.5 g/dL (6.4-8.2)
[2023-04-05 09:57] LABS: INR 1.13 (0.91-1.10); PARTIAL THROMBOPLASTIN TIME 29.9 SEC (24.3-34.3); PROTHROMBIN TIME 11.9 SECS (9.2-11.1)
[2023-04-05 10:00] LABS: LACTIC ACID 2.6 mmol/L (0.4-2.0)
[2023-04-05 10:01] LABS: ALCOHOL, BLOOD < 3 mg/dL (0-10)
[2023-04-05] MEDS ORDERED: NOREPINEPHRINE 8 MG in IV NS 0.9% 242 ML IV PRN (11:30)
[2023-04-05] MEDS ORDERED: BUMETANIDE INJ 6 MG in IV NS 0.9% 36 ML IV ONE (20:00)
[2023-04-05] MEDS ORDERED: Z GUARD REMEDY 4 OZ OINT TP PRN (20:00)
[2023-04-05] MEDS ORDERED: MAGNESIUM HYDROXIDE 30 ML UDC PO PRN (20:00)
[2023-04-05] MEDS ORDERED: NOREPINEPHRINE 32 MG in IV NS 0.9% 218 ML IV PRN (20:00)
[2023-04-05] MEDS ORDERED: ACETAMINOPHEN 325 MG TABLET PO PRN (20:00)
[2023-04-05] MEDS ORDERED: ONDANSETRON HCL/PF 4 MG/2 ML VIAL IVP PRN (20:00)
[2023-04-05] MEDS: IV NS 0.9% 250 ML IV PRN (20:16)
[2023-04-05] MEDS: ENOXAPARIN SODIUM 80 MG/0.8 ML DISP.SYRIN SQ SCH (20:24)
[2023-04-05] MEDS: NOREPINEPHRINE 32 MG in IV NS 0.9% 218 ML IV PRN ×3 (21:00→22:04)
[2023-04-06] VITALS (95 sets, daily range): BP systolic 91–155; BP diastolic 46–131; TEMP 97.7–98.4; O2SAT 91–100
[2023-04-06 02:55] LABS: BASOPHILS # (AUTO) 0.1 K/uL (0.0-0.2); BASOPHILS % (AUTO) 0.4 % (0.0-2.0); EOSINOPHILS # (AUTO) 0.1 K/uL (0.0-0.7); EOSINOPHILS % (AUTO) 0.4 % (0.0-6.0); HEMATOCRIT 31 % (39-51); HEMOGLOBIN 9.8 g/dL (13.5-17.5); LYMPHOCYTES # (AUTO) 1.4 K/uL (0.8-4.8); LYMPHOCYTES % (AUTO) 9.9 % (20.0-44.0); MEAN CORPUSCULAR HEMOGLOBIN 28 PG (26.0-33.0); MEAN CORPUSCULAR HGB CONC 32 g/dl (31.0-36.0); MEAN CORPUSCULAR VOLUME 89 fL (80-96); MONOCYTES # (AUTO) 1.4 K/uL (0.1-1.30); MONOCYTES % (AUTO) 10.1 % (2.0-12.0); NEUTROPHILS # (AUTO) 11.2 K/uL (1.8-8.9); NEUTROPHILS % (AUTO) 79.2 % (43.0-81.0); PLATELET COUNT (AUTO) 139 K/uL (150-450); RED BLOOD CELL COUNT(AUTO) 3.47 MIL/uL (4.5-6.0); RED CELL DISTRIBUTION WIDTH 17.9 % (11.5-15.0); WHITE BLOOD COUNT (AUTO) 14.2 K/uL (4.3-11.0)
[2023-04-06 03:10] LABS: ALANINE AMINOTRANSFERASE 20 U/L (12-78); ALBUMIN 2.3 g/dL (3.4-5.0); ALKALINE PHOSPHATASE 87 U/L (46-116); ASPARTATE AMINOTRANSFERASE 24 U/L (15-37); BILIRUBIN,TOTAL 0.5 mg/dL (0.2-1.0); CALCIUM, SERUM 8.2 mg/dL (8.5-10.1); CARBON DIOXIDE 27 mmol/L (21-32); CHLORIDE 108 mmol/L (98-107); CREATININE 1.6 mg/dL (0.6-1.3); GLUCOSE 108 mg/dL (74-106); MAGNESIUM 1.7 mg/dL (1.8-2.4); PHOSPHORUS 3.1 mg/dL (2.5-4.9); POTASSIUM 3.9 mmol/L (3.5-5.1); SODIUM SERUM 142 mmol/L (136-145); TOTAL PROTEIN, SERUM 6.6 g/dL (6.4-8.2); UREA NITROGEN, BLOOD 28 mg/dL (7-18)
[2023-04-06 03:22] LABS: CHOLESTEROL 87 mg/dL (<200); HDL CHOLESTEROL 35 mg/dL (40-60); LDL 36 mg/dL (0-99); THYROID STIMULATING HORMONE 3.692 uIU/mL (0.358-3.74); TRIGLYCERIDES 92 mg/dL (30-150)
[2023-04-06 03:43] LABS: IRON, SERUM 15 ug/dl (50-175); TOTAL IRON BINDING CAPACITY 173 ug/dl (250-450)
[2023-04-06] MEDS: VANCOMYCIN 1 GM in IV D5W 250ml IV SCH (09:23)
[2023-04-06] MEDS: ASPIRIN EC 81 MG TABLET.DR PO SCH (09:23)
[2023-04-06] MEDS: THERAHONEY GEL 1.5 OZ TUBE TP SCH (09:27)
[2023-04-06] MEDS ORDERED: MAGNESIUM OXIDE 400 MG TABLET PO ONE ×2 (10:00→11:00)
[2023-04-06] MEDS ORDERED: PIPERACILLIN /TAZOBACTAM 3.375 G in IV D5W 50 ML IV SCH (10:30)
[2023-04-06] MEDS: PIPERACILLIN /TAZOBACTAM 3.375 G in IV D5W 100 ML IV SCH ×2 (13:10→20:19)
[2023-04-06] MEDS: ENOXAPARIN SODIUM 80 MG/0.8 ML DISP.SYRIN SQ SCH (20:20)
[2023-04-06 20:56] LABS: APPEARANCE,URINE CLEAR (CLEAR); BILIRUBIN,URINE NEGATIVE (NEGATIVE); BLOOD, URINE TRACE-INTA Ery/uL (NEGATIVE); COLOR,URINE YELLOW (YELLOW); KETONES,URINE NEGATIVE (NEGATIVE); LEUKOCYTE ESTERASE ,URINE NEGATIVE (NEGATIVE); NITRITE, URINE NEGATIVE (NEGATIVE); PH,URINE 5.5 (5.0-8.0); PROTEIN,URINE NEGATIVE (NEGATIVE); UGLUCOSE NEGATIVE (NEGATIVE); UROBILINOGEN,URINE 0.2 EU/dL (0.2)
[2023-04-06 21:01] LABS: AMPHETAMINE, URINE NEGATIVE (NEGATIVE); BARBITURATE, URINE NEGATIVE (NEGATIVE); BENZODIAZEPINE, URINE NEGATIVE (NEGATIVE); CANNABINOID, URINE NEGATIVE (NEGATIVE); COCCAINE, URINE NEGATIVE (NEGATIVE); OPIATE, URINE NEGATIVE (NEGATIVE); PHENCYCLIDINE SCREEN,URINE NEGATIVE (NEGATIVE)
[2023-04-06 21:24] LABS: ADD URINE CULTURE NO; BACTERIA,URINE 1+ /HPF (None Seen); COARSE GRANULAR CASTS,URINE Few /LPF (None Seen); RBC,URINE 0-2 /HPF (0-2); SQUAMOUS EPITHELIAL CELL,UR Few /HPF (None Seen); WBC,URINE 0-2 /HPF (0-3)
[2023-04-07] VITALS (34 sets, daily range): BP systolic 90–143; BP diastolic 51–91; TEMP 97.6–98.4; O2SAT 94–100
[2023-04-07] MEDS: PIPERACILLIN /TAZOBACTAM 3.375 G in IV D5W 100 ML IV SCH ×3 (03:41→18:16)
[2023-04-07 04:32] LABS: CALCIUM, SERUM 8.3 mg/dL (8.5-10.1); CARBON DIOXIDE 28 mmol/L (21-32); CHLORIDE 104 mmol/L (98-107); CREATININE 1.4 mg/dL (0.6-1.3); GLUCOSE 86 mg/dL (74-106); POTASSIUM 3.3 mmol/L (3.5-5.1); SODIUM SERUM 139 mmol/L (136-145); UREA NITROGEN, BLOOD 25 mg/dL (7-18)
[2023-04-07] MEDS ORDERED: LORAZEPAM INJ 2 MG/ML VIAL IV ONE (06:00)
[2023-04-07] MEDS: VANCOMYCIN 1 GM in IV D5W 250ml IV SCH (09:52)
[2023-04-07] MEDS: ASPIRIN EC 81 MG TABLET.DR PO SCH ×3 (09:53→11:48)
[2023-04-07] MEDS: THERAHONEY GEL 1.5 OZ TUBE TP SCH (09:56)
[2023-04-07] MEDS: IV D5/ 0.9% NACL 1,000 ML IV PRN (09:56)
[2023-04-07] MEDS: IV NS 0.9% 250 ML IV PRN (09:58)
[2023-04-07 10:57] LABS: HIV-1 p24 ANTIGEN NON REACTIVE (NONREACTIVE); HIV-1/2 ANTIBODY NON REACTIVE (NONREACTIVE)
[2023-04-07] MEDS ORDERED: POTASSIUM CHLORIDE 20 MEQ POWDER PACKET PO ONE (11:00)
[2023-04-07] MEDS: ENOXAPARIN SODIUM 80 MG/0.8 ML DISP.SYRIN SQ SCH (20:10)
[2023-04-08 01:25] VITALS: BP 118/51; TEMP 97.7; O2SAT 96
[2023-04-08] MEDS: PIPERACILLIN /TAZOBACTAM 3.375 G in IV D5W 100 ML IV SCH ×3 (03:25→18:03)
[2023-04-08] MEDS: IV D5/ 0.9% NACL 1,000 ML IV PRN (04:56)
[2023-04-08 05:42] VITALS: BP 121/53; TEMP 97.8; O2SAT 97
[2023-04-08 05:57] LABS: BASOPHILS # (AUTO) 0.1 K/uL (0.0-0.2); BASOPHILS % (AUTO) 1.1 % (0.0-2.0); EOSINOPHILS # (AUTO) 0.3 K/uL (0.0-0.7); EOSINOPHILS % (AUTO) 4.2 % (0.0-6.0); HEMATOCRIT 28 % (39-51); HEMOGLOBIN 9.2 g/dL (13.5-17.5); LYMPHOCYTES % (AUTO) 16.5 % (20.0-44.0); MEAN CORPUSCULAR HEMOGLOBIN 29 PG (26.0-33.0); MEAN CORPUSCULAR HGB CONC 32 g/dl (31.0-36.0); MEAN CORPUSCULAR VOLUME 89 fL (80-96); MONOCYTES # (AUTO) 0.7 K/uL (0.1-1.30); MONOCYTES % (AUTO) 12.1 % (2.0-12.0); NEUTROPHILS # (AUTO) 4.1 K/uL (1.8-8.9); NEUTROPHILS % (AUTO) 66.1 % (43.0-81.0); PLATELET COUNT (AUTO) 133 K/uL (150-450); RED BLOOD CELL COUNT(AUTO) 3.19 MIL/uL (4.5-6.0); RED CELL DISTRIBUTION WIDTH 18.1 % (11.5-15.0); WHITE BLOOD COUNT (AUTO) 6.1 K/uL (4.3-11.0)
[2023-04-08 06:13] LABS: CALCIUM, SERUM 8.3 mg/dL (8.5-10.1); CREATININE 1.3 mg/dL (0.6-1.3); POTASSIUM 3.2 mmol/L (3.5-5.1)
[2023-04-08 08:00] VITALS: BP 133/58; TEMP 97.8; O2SAT 96
[2023-04-08] MEDS: ASPIRIN EC 81 MG TABLET.DR PO SCH (08:53)
[2023-04-08] MEDS: THERAHONEY GEL 1.5 OZ TUBE TP SCH (08:54)
[2023-04-08] MEDS ORDERED: POTASSIUM CHLORIDE 20 MEQ POWDER PACKET PO ONE (09:30)
[2023-04-08 12:00] VITALS: BP 123/65; TEMP 97.5; O2SAT 95
[2023-04-08 16:00] VITALS: BP 135/65; TEMP 98.2; O2SAT 95
[2023-04-08] MEDS: PROSOURCE / PROSTAT (PYXIS) 30 ML UDC PO SCH ×2 (16:05→17:07)
[2023-04-08] MEDS: ARGININE/GLUTAMINE/CALCIUM BMB 1 EACH POWD.PACK PO SCH (17:07)
[2023-04-08 20:00] VITALS: BP 138/64; TEMP 98; O2SAT 94
[2023-04-08] MEDS: ENOXAPARIN SODIUM 80 MG/0.8 ML DISP.SYRIN SQ SCH (20:14)
[2023-04-09] VITALS: BP 138/68; TEMP 98.4; O2SAT 97
[2023-04-09] MEDS: PIPERACILLIN /TAZOBACTAM 3.375 G in IV D5W 100 ML IV SCH ×3 (02:20→18:43)
[2023-04-09 04:00] VITALS: BP 140/60; TEMP 98; O2SAT 97
[2023-04-09 06:28] LABS: BASOPHILS % (AUTO) 0.7 % (0.0-2.0); EOSINOPHILS # (AUTO) 0.3 K/uL (0.0-0.7); EOSINOPHILS % (AUTO) 5.2 % (0.0-6.0); HEMATOCRIT 29 % (39-51); HEMOGLOBIN 9.3 g/dL (13.5-17.5); LYMPHOCYTES % (AUTO) 15.9 % (20.0-44.0); MEAN CORPUSCULAR HEMOGLOBIN 29 PG (26.0-33.0); MEAN CORPUSCULAR HGB CONC 32 g/dl (31.0-36.0); MEAN CORPUSCULAR VOLUME 89 fL (80-96); MONOCYTES # (AUTO) 0.8 K/uL (0.1-1.30); NEUTROPHILS # (AUTO) 4.3 K/uL (1.8-8.9); NEUTROPHILS % (AUTO) 66.2 % (43.0-81.0); PLATELET COUNT (AUTO) 160 K/uL (150-450); RED BLOOD CELL COUNT(AUTO) 3.22 MIL/uL (4.5-6.0); RED CELL DISTRIBUTION WIDTH 18.2 % (11.5-15.0); WHITE BLOOD COUNT (AUTO) 6.4 K/uL (4.3-11.0)
[2023-04-09 06:58] LABS: CALCIUM, SERUM 8.5 mg/dL (8.5-10.1); CREATININE 1.2 mg/dL (0.6-1.3); PHOSPHORUS 2.9 mg/dL (2.5-4.9); POTASSIUM 3.1 mmol/L (3.5-5.1)
[2023-04-09 08:00] VITALS: BP 147/66; TEMP 98.2; O2SAT 100
[2023-04-09] MEDS: PROSOURCE / PROSTAT (PYXIS) 30 ML UDC PO SCH ×4 (08:31→17:25)
[2023-04-09] MEDS: ARGININE/GLUTAMINE/CALCIUM BMB 1 EACH POWD.PACK PO SCH ×3 (08:31→17:25)
[2023-04-09] MEDS: ASPIRIN EC 81 MG TABLET.DR PO SCH (08:37)
[2023-04-09] MEDS: THERAHONEY GEL 1.5 OZ TUBE TP SCH (08:47)
[2023-04-09] MEDS ORDERED: POTASSIUM CHLORIDE 20 MEQ TAB.PRT.SR PO ONE (10:00)
[2023-04-09 12:00] VITALS: BP 145/66; TEMP 98.2
[2023-04-09] MEDS: IV D5/ 0.9% NACL 1,000 ML IV SCH (14:44)
[2023-04-09 16:00] VITALS: BP 136/69; TEMP 98.4; O2SAT 99
[2023-04-09 20:00] VITALS: BP 127/59; TEMP 99
[2023-04-10] VITALS: BP 141/61; TEMP 98.2; O2SAT 99
[2023-04-10] MEDS: PIPERACILLIN /TAZOBACTAM 3.375 G in IV D5W 100 ML IV SCH ×2 (03:27→11:00)
[2023-04-10 04:00] VITALS: BP 131/60; TEMP 97.7; O2SAT 93
[2023-04-10] MEDS: IV D5/ 0.9% NACL 1,000 ML IV SCH (06:00)
[2023-04-10 08:16] VITALS: BP 126/63; TEMP 98.4; O2SAT 95
[2023-04-10] MEDS ORDERED: AMOX-427 PO (08:26)
[2023-04-10] MEDS: ASPIRIN EC 81 MG TABLET.DR PO SCH (08:45)
[2023-04-10] MEDS: THERAHONEY GEL 1.5 OZ TUBE TP SCH (08:46)
[2023-04-10] MEDS: ARGININE/GLUTAMINE/CALCIUM BMB 1 EACH POWD.PACK PO SCH (08:46)
[2023-04-10] MEDS: PROSOURCE / PROSTAT (PYXIS) 30 ML UDC PO SCH (08:46)
== END 2023-04-10 10:50 | disposition home health service (06) | DRG 871 ==
LOC: ER 08:52 → ICU 19:13 → TELE1 04-07 17:40
PROVIDERS: ADMIT Nurse Practitioner Acute Care; ATTEND Nurse Practitioner Acute Care
PROC: 02HV33Z Insertion of Infusion Device into Superior Vena Cava, Percutaneous Approach (ICD-10-PCS; principal; 2023-04-05)
PROC: B548ZZA Ultrasonography of Superior Vena Cava, Guidance (ICD-10-PCS; 2023-04-05)
DX: A41.9 Sepsis, unspecified organism (principal); G92.8 Other toxic encephalopathy; I50.31 Acute diastolic (congestive) heart failure; J96.01 Acute respiratory failure with hypoxia; J18.9 Pneumonia, unspecified organism; I21.A1 Myocardial infarction type 2; R65.21 Severe sepsis with septic shock; N17.9 Acute kidney failure, unspecified; E87.20 Acidosis, unspecified; C21.0 Malignant neoplasm of anus, unspecified; J98.11 Atelectasis; I82.413 Acute embolism and thrombosis of femoral vein, bilateral; K56.600 Partial intestinal obstruction, unspecified as to cause; J90 Pleural effusion, not elsewhere classified; E03.9 Hypothyroidism, unspecified; E78.5 Hyperlipidemia, unspecified; Z86.79 Personal history of other diseases of the circulatory system; Z96.641 Presence of right artificial hip joint; K21.9 Gastro-esophageal reflux disease without esophagitis; F32.A Depression, unspecified; G62.9 Polyneuropathy, unspecified; Z79.899 Other long term (current) drug therapy; D63.8 Anemia in other chronic diseases classified elsewhere; E86.0 Dehydration; E87.6 Hypokalemia; L89.150 Pressure ulcer of sacral region, unstageable
CPT/HCPCS: 36415; 70450-TC; 71045-TC; 80048-TC; 80053-TC; 80061-TC; 80076-TC; 81001; 82140-TC; 83540-TC; 83605-TC; 83735-TC; 83880; 84100-TC; 84443-TC; 84484-TC; 85025-TC; 85730-TC; 86803; 87040-TC; 87081-TC; 87086-TC; 87806; 93307-TC; 93970-TC; 97116-TC; 97530-TC; A4223; G0378; G0480; J0692; J1650; J2060; J2543; J3370; J3490; J7030; J7040; J7042; J7050; J7060; J7120